=== PATIENT | female | born 1985 | race Hispanic/Latino ===

== ENCOUNTER 2022-05-17 12:35 | Emergency (ER) | payer OTHER, SELFPAY ==
[2022-05-17 13:10] VITALS: BP 129/89; PULSE 82; RESP 14; TEMP 36.8; O2SAT 100
--- NOTE | 2022-05-17 13:35 | ED.UPPEXIN ---
HPI - Extremity Injury (Upper) General Chief Complaint: Extremity Injury, Upper Stated Complaint: lt shoulder pain Time Seen by Provider: 05/17/22 13:35 History of Present Illness HPI narrative: Celia Bacon is a 36 yo female with no PMH who comes to express care with left shoulder pain anterior that is about 3-4 out of 10, started on Saturday, is slightly better with Advil; has good range of motion but pain when tries to raise arm above 90 degrees Related Data Allergies Allergy/AdvReac Type Severity Reaction Status Date / Time No Known Allergies Allergy Verified 05/17/22 13:27 Review of Systems Review of Systems: CONSTITUTIONAL: Denies fever, chills, sweats. EYES: Denies visual changes, redness, discharge. ENT: Denies rhinorrhea, congestion, sore throat, otalgia. CARDIOVASCULAR: Denies chest pain, palpitations, edema. RESPIRATORY: Denies dyspnea, wheezing, cough GASTROINTESTINAL: Denies abdominal pain, nausea, vomiting, diarrhea. GENITOURINARY: Denies dysuria, hematuria, abnormal discharge SKIN: Denies rash or itching. NEUROLOGIC: Denies numbness, or focal weakness. PSYCHIATRIC: Denies anxiety or depression. Left arm pain with elevation with outstretched arm above head PMFSH Past Medical History Medical History No acute medical problems Comments At time of signature, I agree with nursing past medical, surgical, social and family history. There is no relevant family history pertinent to the presenting complaint. Exam Narrative: GENERAL: This is a well-nourished, well-developed patient, in mild distress. HEAD: normocephalic, atraumatic. EYES:. Sclera clear/white. Vision is grossly intact. EARS: External ears normal. Hearing grossly intact. NOSE: External nose normal without nasal discharge, nares without redness, no rhinorrhea. THROAT: Mucous membranes moist, NECK: Neck supple, non-tender CARDIOVASCULAR: Regular rate and rhythm without murmurs, gallops, or rubs. RESPIRATORY: Clear to auscultation. Breath sounds equal bilaterally. No wheezes, rales, or rhonchi. GASTROINTESTINAL: Not done SKIN: warm, intact with no suspicious lesions or rash, good texture and turgor. NEURO: awake, alert, and oriented to person, place and time. There were no obvious focal neurologic abnormalities. Steady gait EXTREMITIES: Normal range of motion. L+ left shoulder pain anterior; 5 out of 5 handgrip, able to move posteriorly anteriorly but pain with outstretched arm above 90 degrees; denies bicep pain BACK: Nontender without deformity Course Course Emergency Course: Patient comes with left anterior shoulder pain x2 days Improves somewhat with Advil Started on Medrol Dosepak and muscle relaxant Level of Care: Express Care Visit Vital Signs Vital signs: Vital Signs Temperature 98.3 F 05/17/22 13:10 Pulse Rate 82 05/17/22 13:10 Respiratory Rate 14 05/17/22 13:10 Blood Pressure 129/89 05/17/22 13:10 Pulse Oximetry 100 05/17/22 13:10 Oxygen Delivery Room Air 05/17/22 13:10 Temperature 98.3 F 05/17/22 13:10 Pulse Rate 82 05/17/22 13:10 Respiratory Rate 14 05/17/22 13:10 Blood Pressure 129/89 05/17/22 13:10 Pulse Oximetry 100 05/17/22 13:10 Oxygen Delivery Room Air 05/17/22 13:10 Critical Care Time Critical Care Time Critical Care Time: No Discharge Plan Discharge Clinical Impression: Rotator cuff (capsule) sprain Qualifiers: Encounter type: initial encounter Laterality: left Qualified Code(s): S43.422A - Sprain of left rotator cuff capsule, initial encounter Patient Disposition: Home, Self-Care Condition: Stable Instructions: Rotator Cuff Injury Exercises (DC) Additional Instructions: Limit the amount of lifting that you do to less than 10 pounds May use ice to help relieve pain Take meds as prescribed muscle relaxants may cause drowsiness Prescriptions: New methylprednisolone [Medrol (Galdino)] 4 mg tablets,
== END 2022-05-17 13:54 | disposition home or self-care (01) ==
PROVIDERS: Emergency Provider Nurse Practitioner
DX: S43.422A Sprain of left rotator cuff capsule, initial encounter (principal); X58.XXXA Exposure to other specified factors, initial encounter
CPT/HCPCS: 99203; G0463

== ENCOUNTER 2022-10-23 10:21 | Emergency (ER) | payer OTHER, SELFPAY ==
[2022-10-23 12:04] VITALS: BP 129/76; PULSE 81; RESP 16; TEMP 36.3; O2SAT 100
--- NOTE | 2022-10-23 12:44 | ED.URI ---
HPI - URI/Sore Throat General Chief Complaint: Upper Respiratory Infection Stated Complaint: headache,flu symptoms Time Seen by Provider: 10/23/22 12:45 Source: patient Mode of arrival: ambulatory Limitations: no limitations History of Present Illness HPI Narrative: 37-year-old female presents with complaint of nasal congestion, sore throat, cough, fatigue, body aches, chills since yesterday. Afebrile. Denies chest pain and shortness of breath. No nausea vomiting diarrhea. Is taking Mucinex cold and flu to treat symptoms. States that she is missing work today due to being ill. All systems reviewed and negative except as noted above. Related Data Home Medications Medication Instructions Recorded Confirmed ethynodiol diacetate-ethinyl 1 tablet PO DAILY 10/23/22 10/23/22 estradiol 1 mg-35 mcg tablet (Zovia) Allergies Allergy/AdvReac Type Severity Reaction Status Date / Time No Known Allergies Allergy Verified 10/23/22 12:16 Review of Systems Review of Systems: CONSTITUTIONAL: Denies fever, chills, or sweats. Reports fatigue. EYES: Denies visual changes, redness, or discharge. ENT: reports rhinorrhea, congestion, sore throat. Denies otalgia. CARDIOVASCULAR: Denies chest pain, palpitations, or edema. RESPIRATORY: reports cough. Denies dyspnea. GASTROINTESTINAL: Denies abdominal pain, nausea, vomiting, or diarrhea. GENITOURINARY: Denies dysuria or hematuria. SKIN: Denies rash or itching. MUSCULOSKELETAL: Denies back pain, joint pain . Reports myalgia. NEUROLOGIC: reports headache. Deniesnumbness, or weakness. PSYCHIATRIC: Denies anxiety or depression. All other systems reviewed are negative, except as documented in HPI. [facility] Past Medical History Medical History No acute medical problems Comments At time of signature, agree with nursing past medical, surgical, social and family history. There is no relevant family history pertinent to the presenting complaint. Exam Narrative: GENERAL: This is a well-nourished, well-developed patient. Patient ill-appearing but no distress. HEAD: normocephalic, atraumatic. EYES: PERRL. Sclera clear/white. Vision is grossly intact. EARS: External ears normal, auditory canals clear and without drainage, TMs normal without perforation. Hearing grossly intact. NOSE: External nose normal with Clear nasal drainage, mild congestion, erythema to both nares with mild swelling. THROAT: Mucous membranes moist, posterior pharynx clear. NECK: Neck supple, non-tender without lymphadenopathy, masses or thyromegaly. CARDIOVASCULAR: Regular rate and rhythm without murmurs, gallops, or rubs. RESPIRATORY: Clear to auscultation. Breath sounds equal bilaterally. No wheezes, rales, or rhonchi. SKIN: warm, Dry, intact with no suspicious lesions or rash, good texture and turgor. NEURO: awake, alert, and oriented to person, place and time. There were no obvious focal neurologic abnormalities. EXTREMITIES: No joint tenderness, effusion, or edema noted. Course Course Level of Care: Express Care Visit Vital Signs Vital signs: Vital Signs Temperature 36.3 C L 10/23/22 12:04 Pulse Rate 81 10/23/22 12:04 Respiratory Rate 16 10/23/22 12:04 Blood Pressure 129/76 10/23/22 12:04 Pulse Oximetry 100 10/23/22 12:04 Oxygen Delivery Room Air 10/23/22 12:04 Temperature 36.3 C L 10/23/22 12:04 Pulse Rate 81 10/23/22 12:04 Respiratory Rate 16 10/23/22 12:04 Blood Pressure 129/76 10/23/22 12:04 Pulse Oximetry 100 10/23/22 12:04 Oxygen Delivery Room Air 10/23/22 12:04 Reviewed MDM - URI/Sore Throat MDM Narrative Medical decision making narrative: Patient is aware of diagnosis, understands and agrees to treatment plan. Anticipatory guidance given. Patient agrees to follow-up as directed and is aware of reasons to seek care at the emergency department. Portions of this record may have b
== END 2022-10-23 12:52 | disposition home or self-care (01) ==
PROVIDERS: Emergency Provider Nurse Practitioner Family
DX: J06.9 Acute upper respiratory infection, unspecified (principal); Z20.822 Contact with and (suspected) exposure to COVID-19
CPT/HCPCS: 87426; 99213; C9803; G0463

== ENCOUNTER 2022-12-07 09:39 | Emergency (ER) | payer OTHER, SELFPAY ==
[2022-12-07 09:51] VITALS: BP 131/80; PULSE 77; RESP 18; TEMP 36.4; O2SAT 100
--- NOTE | 2022-12-07 09:57 | ED.FEMALEGU ---
HPI - Female Genitourinary General Chief complaint: Urogenital-Female Stated complaint: Female Urogenital Time Seen by Provider: 12/07/22 10:02 Source: patient, RN notes reviewed and old records reviewed Mode of arrival: ambulatory Limitations: no limitations History of Present Illness HPI Narrative: 37-year-old female presents to the [facility] with increased urination, frequency, urgency as well as burning. Mild symptoms started 2 days ago, today got worse. Denies abdominal pain. No CVA tenderness. No nausea or vomiting. Denies chest pain or shortness of breath. Denies Related Data Home Medications Medication Instructions Recorded Confirmed ethynodiol diacetate-ethinyl 1 tablet PO DAILY 10/23/22 12/07/22 estradiol 1 mg-35 mcg tablet (Zovia) Allergies Allergy/AdvReac Type Severity Reaction Status Date / Time No Known Allergies Allergy Verified 12/07/22 10:00 Review of Systems Review of Systems: All systems reviewed & are unremarkable except as noted in HPI and below Constitutional: Constitutional: Reports no additional constitutional complaints Eyes: Eyes: Reports no additional eye complaints ENT: Reports system reviewed and no additional complaints, except as documented Cardiovascular: Cardiovascular: Reports no additional cardiovascular complaints, Denies chest pain and Denies dyspnea Respiratory: Respiratory: Reports no additional respiratory complaints, Denies chest congestion, Denies cough and Denies dyspnea Gastrointestinal: Gastrointestinal: Reports no additional gastrointestinal complaints, Denies abdominal pain, Denies nausea and Denies vomiting Genitourinary: Genitourinary: Reports as per HPI, Reports dysuria, Denies flank pain and Denies urinary incontinence Musculoskeletal: Musculoskeletal: Reports no additional musculoskeletal complaints Integumentary/Breasts: Skin/Breast: Reports system reviewed and no additional complaints, except as docu Neurologic: Reports system reviewed and no additional complaints, except as documented Psychiatric: Psychiatric: Reports no additional psychiatric complaints Allergic/Immunologic: Allergic/Immunologic: Reports no additional allergic/immunologic complaints PMFSH Past Medical History Medical History No acute medical problems Comments At the time of my signature, I reviewed and agree with the nursing past medical, surgical, social, and family history. There is no relevant family history pertinent to the patient complaint. Exam Const: General: cooperative, healthy appearing, comfortable, no acute distress, well developed, alert and well nourished Nutritional Appearance: well nourished Orientation/consciousness: patient oriented x3 Limitations: no limitations HENMT: Head: normal to inspection Ears: hearing grossly normal bilaterally and external ears normal Face/Nose/Sinus: Normal external nose present, Normal nares present, Normal nasal mucous membranes and turbinates present and normal facial exam Face and sinus: normal facial exam Eyes: General: appearance normal, both eyes and all related structures Alignment and Position: alignment normal Periorbital: periorbital findings normal Conjunctivae: conjunctivae normal Pupils: Equal, round and reactive pupils present EOM: EOMs intact bilaterally Neck: Neck: normal visual inspection, full ROM, no lymphadenopathy and no meningeal signs Chest: Chest palpation & inspection: normal inspection of the chest Resp: Effort & Inspection: normal respiratory effort and able to speak in complete sentences Auscultation: clear to auscultation bilaterally, no crackles, no rales, no rhonchi and no wheezes Cardio: Rate: regular rate Rhythm: regular rhythm GI: Inspection: non-distended GI Palp: Yes Soft to palpation, No Tenderness to palpation present (GI) and No Guarding due to palpation present (GI) Auscultation: normal bowel sounds
== END 2022-12-07 10:24 | disposition home or self-care (01) ==
PROVIDERS: Emergency Provider Nurse Practitioner
DX: N39.0 Urinary tract infection, site not specified (principal)
CPT/HCPCS: 81003; 87077; 87086; 87186; 99213; G0463

== ENCOUNTER 2023-01-19 12:48 | Emergency (ER) | payer OTHER, SELFPAY ==
[2023-01-19 14:55] VITALS: BP 139/82; PULSE 76; RESP 18; TEMP 36.8; O2SAT 99
--- NOTE | 2023-01-19 14:56 | ED.GENADULT ---
HPI - General Adult General Chief complaint: Upper Respiratory Infection Stated complaint: congestion,headache Time Seen by Provider: 01/19/23 14:57 Source: patient Mode of arrival: ambulatory Limitations: no limitations History of Present Illness HPI narrative: 37-year-old female patient presents to the [facility] with complaints of congestion, headache dry cough since yesterday. Denies fevers, body aches or chills. Denies chest pain or shortness of breath. Patient denies taking anything for her symptoms as they have begun. patient states she did take an at-home COVID test which came back positive however the test was so she went come and get checked out. Related Data Home Medications Medication Instructions Recorded Confirmed ethynodiol diacetate-ethinyl 1 tablet PO DAILY 10/23/22 12/07/22 estradiol 1 mg-35 mcg tablet (Zovia) Allergies Allergy/AdvReac Type Severity Reaction Status Date / Time No Known Allergies Allergy Verified 01/19/23 15:00 Review of Systems Review of Systems: CONSTITUTIONAL: Denies fever, chills, or sweats. EYES: Denies visual changes, redness, or discharge. ENT: Positives rhinorrhea, congestion, sore throat, denies otalgia. CARDIOVASCULAR: Denies chest pain, palpitations, or edema. RESPIRATORY: positive cough , denies dyspnea. GASTROINTESTINAL: Denies abdominal pain, nausea, vomiting, or diarrhea. GENITOURINARY: Denies dysuria or hematuria. SKIN: Denies rash or itching. MUSCULOSKELETAL: Denies back pain, joint pain, or myalgia. NEUROLOGIC: positive headache, denies numbness, or weakness. PSYCHIATRIC: Denies anxiety or depression. PMFSH Past Medical History Medical History No acute medical problems Comments At the time of my signature I agree with nursing past medical history, surgical, social, and family history. There is no relevant family history pertinent to the presenting complaint. Exam Narrative: GENERAL: Well-appearing, well-nourished, and in no acute distress. HEAD: Normocephalic, atraumatic. EYES: PERRLA and EOMI. ENT: Nares with erythema and edema noted bilaterally,, no rhinorrhea or epistaxis. Mucous membranes moist. posterior pharynx with no erythema, tonsillar arch min, exudates or lesions present. Bilateral TMs are clear no erythema or foreign bodies in the canal. NECK: Supple. No lymphadenopathy CHEST: Clear to auscultation. No respiratory distress. HEART: Regular rate and rhythm. No murmur heard. Normal peripheral pulses. ABDOMEN: Soft, nontender, nondistended, normal active bowel sounds. EXTREMITIES: Normal range of motion. No edema. SKIN: Warm, dry, no rash. NEURO: No focal deficits. Alert and oriented x3. Course Course Level of Care: Express Care Visit Vital Signs Vital signs: Vital Signs Temperature 36.8 C 01/19/23 14:55 Pulse Rate 76 01/19/23 14:55 Respiratory Rate 18 01/19/23 14:55 Blood Pressure 139/82 01/19/23 14:55 Pulse Oximetry 99 01/19/23 14:55 Oxygen Delivery Room Air 01/19/23 14:55 Temperature 36.8 C 01/19/23 14:55 Pulse Rate 76 01/19/23 14:55 Respiratory Rate 18 01/19/23 14:55 Blood Pressure 139/82 01/19/23 14:55 Pulse Oximetry 99 01/19/23 14:55 Oxygen Delivery Room Air 01/19/23 14:55 Vital signs reviewed. The patient has been informed that they may have pre-hypertension or Hypertension based on a BP reading in the department. I recommend that the patient call the primary care provider listed on their discharge instructions or a physician of their choice this week to arrange follow up for further evaluation of possible pre-hypertension or Hypertension Medical Decision Making MDM Narrative Medical decision making narrative: Discussed with patient that her COVID test and strep test today there are both negative. We will do a PCR on her since she did have an at-home positive COVID test. We will also send her
[2023-01-19 18:56] LABS: SARS-CoV-2 RNA PCR Negative
== END 2023-01-19 15:40 | disposition home or self-care (01) ==
PROVIDERS: Emergency Provider Nurse Practitioner Family
DX: B34.9 Viral infection, unspecified (principal); Z20.822 Contact with and (suspected) exposure to COVID-19
CPT/HCPCS: 87081; 87426; 87880; 99213; C9803; G0463; U0003; U0005

== ENCOUNTER 2023-03-25 08:41 | Emergency (ER) | payer OTHER, SELFPAY ==
[2023-03-25 09:06] VITALS: BP 143/92; PULSE 81; RESP 18; TEMP 36.7; O2SAT 99
--- NOTE | 2023-03-25 09:22 | ED.URI ---
HPI - URI/Sore Throat General Chief Complaint: Upper Respiratory Infection Stated Complaint: congestion Time Seen by Provider: 03/25/23 09:22 Source: patient and RN notes reviewed Mode of arrival: ambulatory Limitations: no limitations History of Present Illness HPI Narrative: 37-year-old female presents with concern for sinus pressure, chest congestion, cough, sore throat, ear pain, headache, fatigue. Reports symptoms started yesterday. She reports she has been taking Vicks without relief. She denies any known sick contacts. She denies fever, chills, sweats. Reports yesterday she had body aches MD elicited complaint: cough, sore throat and nasal congestion Related Data Home Medications Medication Instructions Recorded Confirmed ethynodiol diacetate-ethinyl 1 tablet PO DAILY 10/23/22 03/25/23 estradiol 1 mg-35 mcg tablet (Zovia) Allergies Allergy/AdvReac Type Severity Reaction Status Date / Time No Known Allergies Allergy Verified 03/25/23 09:05 Review of Systems Review of Systems: CONSTITUTIONAL: Reports malaise, fatigue. Denies chills, sweats, or fever. EYES: Denies visual changes, redness, or discharge. ENT: Reports rhinorrhea, congestion, otalgia and sore throat. CARDIOVASCULAR: Denies chest pain, palpitations, or edema. RESPIRATORY: Reports cough and chest congestion. Denies dyspnea. GASTROINTESTINAL: Denies abdominal pain, nausea, vomiting, diarrhea SKIN: Denies rash or itching. MUSCULOSKELETAL: Denies myalgia. NEUROLOGIC: Reports headache. All systems reviewed & are unremarkable except as noted in HPI and below PMFSH Past Medical History Medical History No acute medical problems Comments At time of signature, agree with nursing past medical, surgical, social and family history. There is no relevant family history pertinent to the presenting complaint Exam Narrative: GENERAL: Nontoxic-appearing and in no acute distress. HEAD: Normocephalic EYES: PERRLA, conjunctivae clear ENT: Nares clear, turbinates edematous and erythematous, clear discharge. Mucous membranes moist. TM pearly patricia with sharp light reflex bilaterally; no tragal tenderness. Oropharynx not erythematous without lesions. Tonsils not enlarged and without exudate, no drooling, no hoarseness, no trismus, uvula midline. NECK: Supple. No lymphadenopathy CHEST: Very slight wheeze, otherwise clear to auscultation, breath sounds equal, aeration good. No rhonchi, rales, or stridor. No respiratory distress, speaks in full sentences. HEART: Regular rate and rhythm. No murmur heard. SKIN: Warm, dry, no rash. NEURO: Alert and oriented x3. PSYCH: Normal mood and affect Course Course Emergency Course: Patient is aware of diagnosis, understands and agrees to treatment plan. Anticipatory guidance given. Patient agrees to follow-up as directed and is aware of reasons to seek care at the emergency department. Portions of this record may have been created with voice recognition software Level of Care: Express Care Visit Vital Signs Vital signs: Vital Signs Temperature 98.0 F 03/25/23 09:06 Pulse Rate 81 03/25/23 09:06 Respiratory Rate 18 03/25/23 09:06 Blood Pressure 143/92 H 03/25/23 09:06 Pulse Oximetry 99 03/25/23 09:06 Oxygen Delivery Room Air 03/25/23 09:06 Temperature 98.0 F 03/25/23 09:06 Pulse Rate 81 03/25/23 09:06 Respiratory Rate 18 03/25/23 09:06 Blood Pressure 143/92 H 03/25/23 09:06 Pulse Oximetry 99 03/25/23 09:06 Oxygen Delivery Room Air 03/25/23 09:06 Reviewed. MDM - URI/Sore Throat MDM Narrative Medical decision making narrative: Differential diagnosis considered: Ramos virus, strep pharyngitis, allergic rhinitis, upper respiratory tract infection, sinusitis, rhinosinusitis, nasopharyngitis. viral pharyngitis, otitis media, otitis externa, pneumonia, bronchitis, viral cough syndrome, viral syndrome, and
== END 2023-03-25 09:56 | disposition home or self-care (01) ==
PROVIDERS: Emergency Provider Nurse Practitioner
DX: J06.9 Acute upper respiratory infection, unspecified (principal); Z20.822 Contact with and (suspected) exposure to COVID-19
CPT/HCPCS: 87081; 87426; 87804; 87880; 99213; C9803; G0463

== ENCOUNTER 2023-05-20 17:21 | Emergency (ER) | payer OTHER, SELFPAY ==
[2023-05-20 17:28] VITALS: BP 139/88; PULSE 76; RESP 20; TEMP 36.6; O2SAT 99
--- NOTE | 2023-05-20 17:39 | ED.SKABFB ---
HPI - Skin/Abscess/Foreign Bdy General Chief complaint: Skin/Abscess/Foreign Body Stated complaint: Rash Time Seen by Provider: 05/20/23 17:39 Source: patient, RN notes reviewed and old records reviewed Mode of arrival: ambulatory Limitations: no limitations History of Present Illness HPI narrative: 37-year-old female presents to the [facility] with complaints of a rash to the bilateral arms and legs. Worse on the right antecubital and right forearm. No rash to the hands, feet or mouth. Patient verbalizes that she is concern for [id number]. Denies any new creams, ointments, lotions or detergents No treatment prior to arrival Onset (ago): day(s) (3) Related Data Home Medications Medication Instructions Recorded Confirmed ethynodiol diacetate-ethinyl 1 tablet PO DAILY 10/23/22 05/20/23 estradiol 1 mg-35 mcg tablet (Zovia) Allergies Allergy/AdvReac Type Severity Reaction Status Date / Time No Known Allergies Allergy Verified 05/20/23 17:35 Review of Systems Review of Systems: All systems reviewed & are unremarkable except as noted in HPI and below Constitutional: Constitutional: Reports no additional constitutional complaints Eyes: Eyes: Reports no additional eye complaints ENT: Reports system reviewed and no additional complaints, except as documented Cardiovascular: Cardiovascular: Reports no additional cardiovascular complaints, Denies chest pain and Denies dyspnea Respiratory: Respiratory: Reports no additional respiratory complaints, Denies chest congestion, Denies cough and Denies dyspnea Gastrointestinal: Gastrointestinal: Reports no additional gastrointestinal complaints, Denies abdominal pain, Denies nausea and Denies vomiting Musculoskeletal: Musculoskeletal: Reports no additional musculoskeletal complaints Integumentary/Breasts: Skin/Breast: Reports as per HPI and Reports rash Neurologic: Reports system reviewed and no additional complaints, except as documented Psychiatric: Psychiatric: Reports no additional psychiatric complaints Allergic/Immunologic: Allergic/Immunologic: Reports no additional allergic/immunologic complaints PMFSH Past Medical History Medical History No acute medical problems Comments At the time of my signature, I reviewed and agree with the nursing past medical, surgical, social, and family history. There is no relevant family history pertinent to the patient complaint. Exam Const: General: cooperative, healthy appearing, comfortable, no acute distress, well developed, alert and well nourished Nutritional Appearance: well nourished Orientation/consciousness: patient oriented x3 Limitations: no limitations HENMT: Head: normal to inspection Ears: hearing grossly normal bilaterally and external ears normal Face/Nose/Sinus: Normal external nose present, Normal nares present, Normal nasal mucous membranes and turbinates present and normal facial exam Face and sinus: normal facial exam Mouth: Yes Normal oral and palatal mucosa present, Yes lip normal and Yes moist mucous membranes Throat: posterior oropharynx normal and uvula midline Eyes: General: appearance normal, both eyes and all related structures Alignment and Position: alignment normal Periorbital: periorbital findings normal Pupils: Equal, round and reactive pupils present EOM: EOMs intact bilaterally Neck: Neck: normal visual inspection, full ROM, no lymphadenopathy and no meningeal signs Chest: Chest palpation & inspection: normal inspection of the chest Resp: Effort & Inspection: normal respiratory effort and able to speak in complete sentences Auscultation: clear to auscultation bilaterally, no crackles, no rales, no rhonchi and no wheezes Cardio: Rate: regular rate Rhythm: regular rhythm Back/Spine/Pelvis: Cervical Spine: cervical ROM normal Thoracic/Lumbar Spine: No thoracic spinal tenderness Skin: General skin exam: normal color
== END 2023-05-20 17:47 | disposition home or self-care (01) ==
PROVIDERS: Emergency Provider Nurse Practitioner
DX: R21 Rash and other nonspecific skin eruption (principal)
CPT/HCPCS: 99213; G0463

== ENCOUNTER 2023-07-01 12:36 | Emergency (ER) | payer OTHER, SELFPAY ==
--- NOTE | 2023-07-01 12:41 | ED.URI ---
HPI - URI/Sore Throat General Chief Complaint: Upper Respiratory Infection Stated Complaint: sorethroat Time Seen by Provider: 07/01/23 13:10 Source: patient and RN notes reviewed Mode of arrival: ambulatory Limitations: no limitations History of Present Illness HPI Narrative: 38-year-old female presents with concern for sore throat, tender lymph nodes, fatigue, cough, headache, nasal congestion, rhinorrhea that started yesterday. 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 She is not taking any [id number] medications for her symptoms. MD elicited complaint: cough and sore throat Related Data Home Medications Medication Instructions Recorded Confirmed ethynodiol diacetate-ethinyl 1 tablet PO DAILY 10/23/22 07/01/23 estradiol 1 mg-35 mcg tablet (Zovia) Allergies Allergy/AdvReac Type Severity Reaction Status Date / Time No Known Allergies Allergy Verified 07/01/23 12:49 Review of Systems Review of Systems: CONSTITUTIONAL: Reports malaise. Denies chills, sweats, or fever. EYES: Denies visual changes, redness, or discharge. ENT: Reports rhinorrhea, congestion, sore throat. Denies sinus pain, otalgia CARDIOVASCULAR: Denies chest pain, palpitations, or edema. RESPIRATORY: Reports cough. Denies dyspnea. GASTROINTESTINAL: Denies abdominal pain, nausea, vomiting, diarrhea SKIN: Denies rash or itching. MUSCULOSKELETAL: Reports myalgia. NEUROLOGIC: Reports headache. All systems reviewed & are unremarkable except as noted in HPI and below PMFSH Past Medical History Medical History No acute medical problems Comments At time of signature, agree with nursing past medical, surgical, social and family history. There is no relevant family history pertinent to the presenting complaint Exam Narrative: GENERAL: Well-appearing, well-nourished, and in no acute distress. HEAD: Normocephalic EYES: PERRLA, conjunctivae clear ENT: Nares clear, turbinates edematous and erythematous, clear discharge. Mucous membranes moist. TM pearly patricia with dull light reflex bilaterally; no tragal tenderness. Oropharynx not erythematous without lesions. Tonsils not enlarged and without exudate, no drooling, no hoarseness, no trismus, uvula midline. NECK: Supple. No lymphadenopathy CHEST: Clear to auscultation, breath sounds equal. No wheezing, rhonchi, rales, or stridor. No respiratory distress, speaks in full sentences. HEART: Regular rate and rhythm. No murmur heard. SKIN: Warm, dry, no rash. NEURO: Alert and oriented x3. PSYCH: Normal mood and affect Course Course Emergency Course: Patient is aware of diagnosis, understands and agrees to treatment plan. Anticipatory guidance given. Patient agrees to follow-up as directed and is aware of reasons to seek care at the emergency department. Portions of this record may have been created with voice recognition software Level of Care: Express Care Visit Vital Signs Vital signs: Vital Signs Temperature 97.9 F 07/01/23 12:46 Pulse Rate 80 07/01/23 12:46 Respiratory Rate 18 07/01/23 12:46 Blood Pressure 127/75 07/01/23 12:46 Pulse Oximetry 100 07/01/23 12:46 Oxygen Delivery Room Air 07/01/23 12:46 Temperature 97.9 F 07/01/23 12:46 Pulse Rate 80 07/01/23 12:46 Respiratory Rate 18 07/01/23 12:46 Blood Pressure 127/75 07/01/23 12:46 Pulse Oximetry 100 07/01/23 12:46 Oxygen Delivery Room Air 07/01/23 12:46 Reviewed. MDM - URI/Sore Throat MDM Narrative Medical decision making narrative: Differential diagnosis considered: Ramos virus, strep pharyngitis, allergic rhinitis, upper respiratory tract infection, sinusitis, rhinosinusitis, nasopharyngitis. viral pharyngitis, otitis media, otitis externa, pneumonia, bronchitis, viral cough syndrome, viral syndrome, and influenza. Exam findings show no acute concerns or changes; patient is non-toxic appearing
[2023-07-01 12:46] VITALS: BP 127/75; PULSE 80; RESP 18; TEMP 36.6; O2SAT 100
== END 2023-07-01 13:35 | disposition home or self-care (01) ==
PROVIDERS: Emergency Provider Nurse Practitioner
DX: J02.9 Acute pharyngitis, unspecified (principal); Z20.822 Contact with and (suspected) exposure to COVID-19
CPT/HCPCS: 87081; 87426; 87880; 99213; C9803; G0463

== ENCOUNTER 2023-09-15 12:10 | Emergency (ER) | payer OTHER, SELFPAY ==
[2023-09-15 12:33] VITALS: BP 127/73; PULSE 84; RESP 18; TEMP 36.6; O2SAT 99
--- NOTE | 2023-09-15 13:24 | ED.GENADULT ---
HPI - General Adult General Chief complaint: Upper Respiratory Infection Stated complaint: cough,sorethroat Time Seen by Provider: 09/15/23 13:24 Source: patient Mode of arrival: ambulatory Limitations: no limitations History of Present Illness HPI narrative: Three 8-year-old female patient presents to [facility] with complaints of sore throat that started 3 days ago. Patient states she started having and T. Denies any nausea vomiting or diarrhea. Denies any fevers she is aware. Related Data Home Medications Medication Instructions Recorded Confirmed ethynodiol diacetate-ethinyl 1 tablet PO DAILY 10/23/22 09/15/23 estradiol 1 mg-35 mcg tablet (Zovia) Allergies Allergy/AdvReac Type Severity Reaction Status Date / Time No Known Allergies Allergy Verified 09/15/23 12:48 Review of Systems Review of Systems: CONSTITUTIONAL: Denies fever, chills, or sweats. positive fatigue EYES: Denies visual changes, redness, or discharge. ENT: Denies rhinorrhea, congestion, Positive sore throat, denies otalgia. CARDIOVASCULAR: Denies chest pain, palpitations, or edema. RESPIRATORY: positive cough denies dyspnea. GASTROINTESTINAL: Denies abdominal pain, nausea, vomiting, or diarrhea. GENITOURINARY: Denies dysuria or hematuria. SKIN: Denies rash or itching. MUSCULOSKELETAL: Denies back pain, joint pain, or myalgia. NEUROLOGIC: Denies headache, numbness, or weakness. PSYCHIATRIC: Denies anxiety or depression. PMFSH Past Medical History Medical History No acute medical problems Exam Narrative: GENERAL: Well-appearing, well-nourished, and in no acute distress. HEAD: Normocephalic, atraumatic. EYES: PERRLA and EOMI. ENT: Nares clear, no rhinorrhea or epistaxis. Mucous membranes moist. posterior pharynx with erythema, 3+ tonsillar enlargement with exudates. Bilateral TMs are clear no erythema foreign bodies the canal. NECK: Supple. No lymphadenopathy CHEST: Clear to auscultation. No respiratory distress. HEART: Regular rate and rhythm. No murmur heard. Normal peripheral pulses. ABDOMEN: Soft, nontender, nondistended, normal active bowel sounds. EXTREMITIES: Normal range of motion. No edema. SKIN: Warm, dry, no rash. NEURO: No focal deficits. Alert and oriented x3. Course Course Level of Care: Express Care Visit Vital Signs Vital signs: Vital Signs Temperature 36.6 C 09/15/23 12:33 Pulse Rate 84 09/15/23 12:33 Respiratory Rate 18 09/15/23 12:33 Blood Pressure 127/73 09/15/23 12:33 Pulse Oximetry 99 09/15/23 12:33 Oxygen Delivery Room Air 09/15/23 12:33 Temperature 36.6 C 09/15/23 12:33 Pulse Rate 84 09/15/23 12:33 Respiratory Rate 18 09/15/23 12:33 Blood Pressure 127/73 09/15/23 12:33 Pulse Oximetry 99 09/15/23 12:33 Oxygen Delivery Room Air 09/15/23 12:33 Vital signs reviewed. Medical Decision Making MDM Narrative Medical decision making narrative: Notify patient that she is positive today for strep. 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 Patient is aware of plan of care denies any other questions or concerns at this time. Differential Diagnosis Differential Diagnosis: Differential diagnosis: Viral pharyngitis, pharyngitis, group A strep, infectious mononucleosis, gonococcal pharyngitis, exudative pharyngitis, oral candidiasis. Chronic allergies, postnasal drip, GERD, abscess formation, but glottitis, retropharyngeal abscess formation, or airway obstruction. Vital Signs Vital Signs: Vital Signs Temperature 36.6 C 09/15/23 12:33 Pulse Rate 84 09/15/23 12:33 Respiratory Rate 18 09/15/23 12:33 Blood Pressure 127/73 09/15/23 12:33 Pulse Oximetry 99 09/15/23 12:33 Oxygen Delivery Room Air 09/15/23 12:33 Temperature 36.6 C 09/15/23 12:33 Pulse R
== END 2023-09-15 13:33 | disposition home or self-care (01) ==
PROVIDERS: Emergency Provider Nurse Practitioner Family
DX: J02.0 Streptococcal pharyngitis (principal); Z20.822 Contact with and (suspected) exposure to COVID-19
CPT/HCPCS: 87426; 87880; 99213; C9803; G0463

== ENCOUNTER 2023-09-28 08:03 | Emergency (ER) | payer OTHER, SELFPAY ==
[2023-09-28 08:29] VITALS: BP 133/72; PULSE 76; RESP 18; TEMP 36.4; O2SAT 100
--- NOTE | 2023-09-28 08:52 | ED.URI ---
HPI - URI/Sore Throat General Chief Complaint: Upper Respiratory Infection Stated Complaint: sorethroat,cough Time Seen by Provider: 09/28/23 08:30 Source: patient Mode of arrival: ambulatory Limitations: no limitations History of Present Illness HPI Narrative: Celia is a 38-year-old female patient presenting to clinic today with complaints of cough, congestion, and sore throat that started on Saturday. She reports that she just finished amoxicillin on Saturday for a strep infection. Was diagnosed with strep on September 15. States she has finished all the antibiotics as prescribed. Reports that last time she had strep she had to go through 2 rounds of antibiotics because the 1st round did not cure the infection. She denies any fever or chills. MD elicited complaint: cough, sore throat and nasal congestion Related Data Home Medications Medication Instructions Recorded Confirmed ethynodiol diacetate-ethinyl 1 tablet PO DAILY 10/23/22 09/15/23 estradiol 1 mg-35 mcg tablet (Zovia) Allergies Allergy/AdvReac Type Severity Reaction Status Date / Time No Known Allergies Allergy Verified 09/15/23 12:48 Review of Systems Review of Systems: Pertinent positives per HPI. Patient denies any fever, chills, rash, headache, visual changes, dizziness, shortness of breath, chest pain, palpitations, nausea, vomiting, diarrhea, constipation, abdominal pain, or any urinary issues. [facility] Past Medical History Medical History No acute medical problems Comments At the time of my signature, I reviewed and agree with the nursing past medical, surgical, social, and family history. There is no relevant family history pertinent to the patient complaint. Exam Narrative: General: Well-developed, well nourished, in no apparent distress Head: Normocephalic, atraumatic Eyes: Pupils equally round and reactive to light bilaterally, EOM intact, sclera and conjunctive clear, no discharge, lids normal Ears: TMs intact and clear, ear canals clear, no drainage, grossly hearing normal. Nose: Nares patent, clear nasal discharge, no inflammation, no sinus tenderness. Mouth: Oral pharynx red with bilateral tonsillar enlargement without lesions or masses, good dentition, MMM. Neck: Supple, trachea midline, enlargement of anterior cervical nodes, no thyroid masses or goiter palpable. Cardio: Regular rate and rhythm, s1 and s2 normal, no murmur appreciated. Resp: Clear to auscultation bilaterally, no rhonchi, rales, wheezing or rubs Course Course Emergency Course: Portions of this record may have been created with voice recognition software. Level of Care: Express Care Visit Vital Signs Vital signs: Vital Signs Temperature 36.4 C 09/28/23 08:29 Pulse Rate 76 09/28/23 08:29 Respiratory Rate 18 09/28/23 08:29 Blood Pressure 133/72 09/28/23 08:29 Pulse Oximetry 100 09/28/23 08:29 Oxygen Delivery Room Air 09/28/23 08:29 Temperature 36.4 C 09/28/23 08:29 Pulse Rate 76 09/28/23 08:29 Respiratory Rate 18 09/28/23 08:29 Blood Pressure 133/72 09/28/23 08:29 Pulse Oximetry 100 09/28/23 08:29 Oxygen Delivery Room Air 09/28/23 08:29 Vital signs reviewed MDM - URI/Sore Throat MDM Narrative Medical decision making narrative: At the time of visit patient is resting comfortably on the exam table. Patient is nontoxic appearing. Strep test was obtained was positive in the clinic today. Will place patient on Augmentin. Supportive measures were discussed with the patient she voiced understanding discharge instructions agrees to treatment plan. Return precautions were reviewed Differential Diagnosis Differential diagnosis: Likely upper respiratory infection, otitis media, sinusitis, viral infection, bronchitis, influenza, pharyngitis and other (COVID) Lab Data Labs: Strep Screen Positive Group A Strep
== END 2023-09-28 09:58 | disposition home or self-care (01) ==
PROVIDERS: Emergency Provider Nurse Practitioner Family
DX: J02.0 Streptococcal pharyngitis (principal)
CPT/HCPCS: 87880; 99213; G0463

== ENCOUNTER 2023-11-06 09:34 | Emergency (ER) | payer OTHER, SELFPAY ==
[2023-11-06 09:48] VITALS: BP 124/80; PULSE 100; RESP 18; TEMP 36.4; O2SAT 99
--- NOTE | 2023-11-06 10:16 | ED.URI ---
HPI - URI/Sore Throat General Chief Complaint: Upper Respiratory Infection Stated Complaint: COVID+ Time Seen by Provider: 11/06/23 10:06 Source: patient and RN notes reviewed Mode of arrival: ambulatory Limitations: no limitations History of Present Illness HPI Narrative: Patient presents today complaining of fatigue, body aches, congestion, headache, and right ear pain since last night. Denies shortness of breath or chest pain. 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 States her employer wanted her to come to urgent care for a confirmatory test as the home test were . Patient has tried Mucinex D, cold and flu medication, Sudafed, Motrin, and ibuprofen with mild relief. She is a nonsmoker. She has been vaccinated for COVID. Related Data Home Medications Medication Instructions Recorded Confirmed ethynodiol diacetate-ethinyl 1 tablet PO DAILY 10/23/22 11/06/23 estradiol 1 mg-35 mcg tablet (Zovia) Allergies Allergy/AdvReac Type Severity Reaction Status Date / Time No Known Allergies Allergy Verified 11/06/23 09:48 Review of Systems Review of Systems: CONSTITUTIONAL: Denies fever, chills, or sweats. + body aches, fatigue EYES: Denies visual changes, redness, or discharge. ENT: Denies rhinorrhea, sore throat.+ congestion, right ear pain CARDIOVASCULAR: Denies chest pain, palpitations, or edema. RESPIRATORY: Denies cough or dyspnea. GASTROINTESTINAL: Denies abdominal pain, nausea, vomiting, or diarrhea. GENITOURINARY: Denies dysuria or hematuria. SKIN: Denies rash, itching, or wounds. MUSCULOSKELETAL: Denies back pain, joint pain, or myalgia. NEUROLOGIC: Denies numbness, tingling, or weakness.+ headache PSYCH: Denies depression or anxiety. PMFSH Past Medical History Medical History No acute medical problems Comments At time of signature, I have reviewed and agree with nursing past medical, surgical, social and family history unless otherwise noted. Please see nursing chart for further information. There is no relevant family history pertinent to the presenting complaint Exam Narrative: GENERAL: Mildly ill-appearing, well-nourished, and in no acute distress. HEAD: Normocephalic, atraumatic. EYES: EOMI. No redness or drainage. Conjunctivae normal. ENT: Mucous membranes pink and moist. Nares congested. No rhinorrhea. TMs normal bilaterally. Throat normal. Uvula midline. NECK: Normal AROM. Supple. No lymphadenopathy. CHEST: No respiratory distress. Clear to auscultation. HEART: Regular rate and rhythm. No murmur appreciated. EXTREMITIES: Normal range of motion. No edema. SKIN: Warm, dry, no rash. Capillary refill normal. Normal skin turgor. NEURO: No focal deficits. Alert and oriented x3. Gait steady. PSYCH: Normal affect. No signs of depression or anxiety. Course Course Level of Care: Express Care Visit Vital Signs Vital signs: Vital Signs Temperature 97.6 F 11/06/23 09:48 Pulse Rate 100 11/06/23 09:48 Respiratory Rate 18 11/06/23 09:48 Blood Pressure 124/80 11/06/23 09:48 Pulse Oximetry 99 11/06/23 09:48 Oxygen Delivery Room Air 11/06/23 09:48 Temperature 97.6 F 11/06/23 09:48 Pulse Rate 100 11/06/23 09:48 Respiratory Rate 18 11/06/23 09:48 Blood Pressure 124/80 11/06/23 09:48 Pulse Oximetry 99 11/06/23 09:48 Oxygen Delivery Room Air 11/06/23 09:48 Reviewed MDM - URI/Sore Throat MDM Narrative Medical decision making narrative: COVID positive. No prescription medications indicated at this time. Anticipatory guidance given. Work note provided. Differential Diagnosis Differential diagnosis: Likely upper respiratory infection, otitis media, viral infection and other (COVID-19) Lab Data Attestation: I reviewed the patient's lab results. Labs: Lab Results 11/06/23 Range/Units 09:
== END 2023-11-06 10:20 | disposition home or self-care (01) ==
PROVIDERS: Emergency Provider Nurse Practitioner
DX: U07.1 COVID-19 (principal)
CPT/HCPCS: 87426; 99213; C9803; G0463

== ENCOUNTER 2024-05-30 18:32 | Emergency (ER) | payer OTHER, SELFPAY ==
[2024-05-30 18:40] VITALS: BP 139/73; PULSE 77; RESP 16; TEMP 36.8; O2SAT 99
[2024-05-30 19:14] LABS: EDSTREPNEGPOS1 Presumptive Negative
--- NOTE | 2024-05-30 19:20 | ED.URI ---
HPI - URI/Sore Throat General Chief Complaint: Upper Respiratory Infection Stated Complaint: sore throat Time Seen by Provider: 05/30/24 19:04 Source: patient and RN notes reviewed Mode of arrival: ambulatory Limitations: no limitations History of Present Illness HPI Narrative: Patient presents today complaining of headache and sore throat since this morning. Denies any additional symptoms. Currently rates her pain 3/10 and has taken no medication for her symptoms prior to arrival. 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 Related Data Home Medications Medication Instructions Recorded Confirmed ethynodiol diacetate-ethinyl 1 tablet PO DAILY 10/23/22 11/06/23 estradiol 1 mg-35 mcg tablet (Zovia) Allergies Allergy/AdvReac Type Severity Reaction Status Date / Time No Known Allergies Allergy Verified 05/30/24 18:49 Review of Systems Review of Systems: CONSTITUTIONAL: Denies body aches, fever, chills, or sweats. EYES: Denies visual changes, redness, or discharge. ENT: Denies rhinorrhea, congestion, or otalgia.+sore throat CARDIOVASCULAR: Denies chest pain, palpitations, or edema. RESPIRATORY: Denies cough or dyspnea. GASTROINTESTINAL: Denies abdominal pain, nausea, vomiting, or diarrhea. GENITOURINARY: Denies dysuria or hematuria. SKIN: Denies rash, itching, or wounds. MUSCULOSKELETAL: Denies back pain, joint pain, or myalgia. NEUROLOGIC: Denies numbness, tingling, or weakness.+headache PSYCH: Denies depression or anxiety. [facility] Past Medical History Medical History No acute medical problems Comments At time of signature, I have reviewed and agree with nursing past medical, surgical, social and family history unless otherwise noted. Please see nursing chart for further information. There is no relevant family history pertinent to the presenting complaint Exam Narrative: GENERAL: Well-appearing, well-nourished, and in no acute distress. HEAD: Normocephalic, atraumatic. EYES: EOMI. No redness or drainage. Conjunctivae normal. ENT: Mucous membranes pink and moist. Nares clear. No rhinorrhea. TMs normal bilaterally. Throat slight erythema without edema exudate. Tonsils 2+. Uvula midline. NECK: Normal AROM. Supple. No lymphadenopathy. CHEST: No respiratory distress. Clear to auscultation. HEART: Regular rate and rhythm. No murmur appreciated. EXTREMITIES: Normal range of motion. No edema. SKIN: Warm, dry, no rash. Capillary refill normal. Normal skin turgor. NEURO: No focal deficits. Alert and oriented x3. Gait steady. PSYCH: Normal affect. No signs of depression or anxiety. Course Course Level of Care: Express Care Visit Vital Signs Vital signs: Vital Signs Temperature 98.3 F 05/30/24 18:40 Pulse Rate 77 05/30/24 18:40 Respiratory Rate 16 05/30/24 18:40 Blood Pressure 139/73 05/30/24 18:40 Pulse Oximetry 99 05/30/24 18:40 Oxygen Delivery Room Air 05/30/24 18:40 Temperature 98.3 F 05/30/24 18:40 Pulse Rate 77 05/30/24 18:40 Respiratory Rate 16 05/30/24 18:40 Blood Pressure 139/73 05/30/24 18:40 Pulse Oximetry 99 05/30/24 18:40 Oxygen Delivery Room Air 05/30/24 18:40 Reviewed MDM - URI/Sore Throat MDM Narrative Medical decision making narrative: Rapid strep negative. Culture pending. Recommend [id number] treatment until culture returns. Anticipatory guidance given. Differential Diagnosis Differential diagnosis: Likely upper respiratory infection, otitis media, viral infection, pharyngitis and other (Strep throat) Lab Data Attestation: I reviewed the patient's lab results. Labs: Lab Results 05/30/24 Range/Units 19:11 POC Grp A Strep Screen Presumptive negative Gp A Beta Strep Culture Yes Grp A Strep Int Pos QC Yes Critical Care Time Critical Care Time Critical Care Time: No Discharge Plan Discharge Clinical Impre
== END 2024-05-30 19:22 | disposition home or self-care (01) ==
PROVIDERS: Emergency Provider Nurse Practitioner
DX: J02.9 Acute pharyngitis, unspecified (principal)
CPT/HCPCS: 87081; 87880; 99213; G0463